=== PATIENT | male | born 1945 | race Caucasian/White ===

== ENCOUNTER 2023-09-21 06:40 | Day surgery (SDC) | payer MEDICARE, BC, SELFPAY ==
--- NOTE | 2023-09-20 08:28 | SUR.PREOP ---
09/20/23 Andrae Received a voicemail from Kavon on 09/19 he did a home Covid test per primary physician recommendation, his test is negative. MDA notified. Okay to proceed with surgery.
[2023-09-21] VITALS (8 sets, daily range): BP systolic 125–148; BP diastolic 66–79; PULSE 47–86; RESP 16; TEMP 36.4–36.6; O2SAT 93–99; BMI 30.9
[2023-09-21] MEDS: LACTATED RINGERS 1000 ML 1,000 ML 100 ML IV (06:50)
[2023-09-21] MEDS: SODIUM CHLORIDE 0.9 % (FLUSH) 10 ML SYRINGE IVF (07:16)
--- NOTE | 2023-09-21 07:41 | SUR.PREOP ---
TIME?OUT:?0808 PT/RN/MDA?VERIFICATION?OF?SURGICAL?SITE Right Arm,?PROCEDURE Ax Block,?AND?CONSENT OBTAINED?PRIOR?TO?INVASIVE?PROCEDURE.
[2023-09-21] MEDS: fentaNYL 100 MCG/2 ML inj IVP (08:09)
[2023-09-21] MEDS: MIDAZOLAM HCL 1 MG/ML inj IVP (08:09)
--- NOTE | 2023-09-21 08:27 | W.PM.H&PU ---
History & Physical Update History & Physical Update H&P Reviewed and patient assessed: No changes noted
[2023-09-21] MEDS: CEFAZOLIN 1 GM inj IVP (08:30)
[2023-09-21] MEDS: 0.9 % SODIUM CHL 20 ml vial INJECTION (08:44)
[2023-09-21] MEDS: BACITRACIN OINTMENT BULK TUBE 1 APPLIC TOPICAL (09:25)
--- NOTE | 2023-09-21 09:42 | P.ANES_ITS ---
Anesthesia Charges Start Date/Time Anesthesia Start Date: 09/21/23 Anesthesia Start Time: 08:28 Stop Date/Time Anesthesia Stop Date: 09/21/23 Anesthesia Stop Time: 09:42 Summary Extremes of Age - Over 70 or under 1: [employer]
--- NOTE | 2023-09-21 10:12 | P.GSOP_ITS ---
Operative Note Pre-op diagnosis: 1. 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 Right elbow lesion Post-op diagnosis: Same Type of Procedure: 1. Wide excision 1.2 cm right hand squamous cell carcinoma with complex closure, total length 4.5 cm 2. Excisional biopsy 1.2 cm right elbow lesion Indications: The patient is a 78-year-old male who noticed a lesion on his right hand. He came in to be seen and biopsy was performed. This was found to be a squamous cell carcinoma. Because of the size and the location on the hand, I had concern for being able to close the wound and therefore I recommended excision in the OR with possible skin graft. This would also allow us to assess margin status at the time of excision. On the day of surgery the patient also noted a scaling lesion measuring 1.2 cm on his right inner elbow. He asked that this also be removed. Procedure Description: After discussing the risks and benefits of the procedure, the patient signed informed consent.? The operative site was marked. Anesthesia then performed an axillary block. Please see their note for details. The patient was brought to the operating room and placed on the operating table in supine position.? Care was taken to pad the patient's pressure points.?? The patient was then given sedation by anesthesia.?? The right arm was then prepped and draped in the usual sterile fashion.? A time-out was then performed. I began by measuring and marking the lesion on the right hand. Measured 1.2 cm across by 1 cm long. I marked out gross margins on either side and created an ellipse and a 3-1 ratio. I then used injectable normal saline to lift the skin from the subcutaneous tissue as the patient had very thin skin on the back of his hand. Once this was done I created an ellipse using a skin knife. Dissection was taken down to the subcutaneous fat. The lesion was sent to pathology for margins. A stitch had been placed at 12:00 p.m. or proximal. Margins returned negative. Meanwhile, I examined the skin edges. They did appear to come together with some tension. To minimize this, using a tenotomy scissor, I created subcutaneous skin flaps. I was then able to pull the edges of the skin together and secured this with 3-0 Vicryl dermal suture. I then used 3-0 Ethilon to close the wound proximally and distally with simple int errupted sutures. In the midportion of the wound this was closed with 3-0 Ethilon vertical mattress sutures. I then turned my attention to the lesion on the medial aspect of the patient's elbow. Again an ellipse was marked on the skin edges to create grossly negative margins. A knife was then used to excise the area down to subcutaneous fat. The stitch was also sent with a stitch at 12:00 p.m. or proximal. Hemostasis was achieved with cautery. The wound was closed with 3-0 Vicryl dermal and 4-0 Monocryl running subcuticular suture. Once this was done, glue was applied applied to the elbow lesion. Bacitracin and Xeroform gauze were then applied to the hand lesion. The hand was wrapped and a splint was placed to immobilize the hand. This was wrapped with an Nagi wrap. ? The patient was then woken and transported to the recovery area in stable condition. ? The patient tolerated the procedure well. Findings: 1. Squamous cell carcinoma of the right hand removed with negative margins on frozen section Anesthesia: MAC and regional Surgeon: Shoshana Nunez MD Estimated blood loss (mL): 5 Additional Specimen Information: 1. Right hand squamous cell carcinoma, stitch at 12:00 p.m. or proximal 2. Right elbow lesion, stitch at 12:00 p.m. or proximal. Condition: stable Disposition: same day Date of procedure: 09/21/23
--- NOTE | 2023-09-21 11:46 | W.ANESCHARGE ---
Anesthesia Charges Start Date/Time Anesthesia Start Date: 09/21/23 Anesthesia Start Time: 08:28 Stop Date/Time Anesthesia Stop Date: 09/21/23 Anesthesia Stop Time: 09:42 Summary Extremes of Age - Over 70 or under 1: MDA
== END 2023-09-21 10:40 | disposition home or self-care (01) ==
PROVIDERS: PCP Family Medicine; Visit Provider Surgery
PROC: (CPT 11622; principal; 2023-09-21 08:00)
DX: C44.622 Squamous cell carcinoma of skin of right upper limb, including shoulder (principal); L98.8 Other specified disorders of the skin and subcutaneous tissue
CPT/HCPCS: 11622; 13132; 11402; 00400; 01810; 88305; 99100; J0690; J1100; J2250; J2405; J2704; J2795; J3010; J3490; J7120; S0077